=== PATIENT | female | born 1945 | race American Indian/Alaskan Native ===

== ENCOUNTER 2016-12-21 12:33 | Outpatient (CLI) | payer MEDICARE ==
--- NOTE | 2016-12-21 14:26 | Mammography Report ---
Bilateral digital screening mammogram with CAD. Comparison studies from 2016 and 2014 are reviewed. Findings: The parenchyma is heterogeneously dense. A new area of parenchymal asymmetry is seen in the upper-outer quadrant of the left breast. No architectural distortion or suspicious calcifications are seen. A stable nodular asymmetry in the upper right breast is unchanged compared to studies in both 2016 and 2014. Impression: New left frontal asymmetry. BI-RADS 2:. Recommendation: Spot compression images, 90 degree view, and ultrasound if needed.
== END 2016-12-21 12:34 | disposition home or self-care (01) ==
LOC: MAMMO 12:33
PROVIDERS: ATTEND Internal Medicine
DX: Z12.31 Encounter for screening mammogram for malignant neoplasm of breast (principal); I10 Essential (primary) hypertension; E03.9 Hypothyroidism, unspecified; F32.9 Major depressive disorder, single episode, unspecified
CPT/HCPCS: 77067; G0202

== ENCOUNTER 2017-02-08 12:21 | Outpatient (CLI) | payer MEDICARE ==
--- NOTE | 2017-02-08 14:55 | Mammography Report ---
Diagnostic left mammogram and targeted left breast ultrasound. History: Recall for left asymmetry. Findings: Spot compression images of the parenchymal density demonstrate almost complete effacement of the previously noted asymmetry. Sonographic evaluation of the upper-outer quadrant of the left breast demonstrate no evidence of a cystic solid mass. Impression: No suspicious findings. BI-RADS code: 1. Recommendation: Annual screening.
== END 2017-02-08 12:22 | disposition home or self-care (01) ==
LOC: MAMMO 12:21
PROVIDERS: ATTEND Internal Medicine
DX: R92.8 Other abnormal and inconclusive findings on diagnostic imaging of breast (principal)
CPT/HCPCS: 76642; G0206

== ENCOUNTER 2017-12-27 13:34 | Outpatient (CLI) | payer MEDICARE ==
--- NOTE | 2017-12-28 08:45 | Mammography Report ---
Bilateral mammogram: Compared to 12/21/16. CAD study utilized. Findings: Scattered glandular parenchyma bilaterally. Benign calcifications bilaterally. New low-density circumscribed asymmetry lower mid right breast seen on MLO view. Normal axilla. Impression: New circumscribed low density asymmetry in right breast. Recommend spot compression and if necessary sonographic examination. BI-RADS CATEGORY: 0 = Needs additional imaging evaluation ACR BI-RADS MAMMOGRAPHIC CODES: 0 = Needs additional imaging evaluation; 1 = Negative; 2 = Benign; 3 = Probably benign; 4 = Suspicious; 5 = Malignant; 6 = Known biopsy-proven malignancy COMMENT: 1. Dense breast tissue, i.e., adenosis, fibrocystic changes, etc., may obscure an underlying neoplasm. 2. Approximately 10% of cancers are not detected with mammography. 3. A negative mammography report should not delay biopsy if a clinically suspicious mass is present. COMMENT: Patient follow-up letters are generated in [facility].
--- NOTE | 2017-12-28 08:50 | Mammography Report ---
BONE DENSITY STUDY: Postmenopausal osteoporosis screening. DEFINITIONS: BMD = Bone Mineral Density T-score = BMD related to mean peak bone mass of young adult (mean expressed in Standard Deviation) Z-score = Age matched BMD expressed in SD World Health Organization (WHO) Diagnostic Criteria Normal T-score > -1 SD Osteopenia T-score between -1 and -2.4 SD Osteoporosis T-score -2.5 SD or below FINDINGS: The weighted average BMD of lumbar spine L1-L4 is 0.810 with a T-score of -2.2. The weighted average BMD of the left hip is 0.695 with a T-score of -2.0. Compared to prior examination December 2015 there has been minimal demineralization change in the spine with no change in the hip. IMPRESSION: The patient's average T-score is diagnostic for osteopenia and average relative risk for fracture. NOTE: BMD is not the only risk factor for fracture; also consider factors such as the patient's age, risk of falling, previous osteoporotic fracture, family history of osteoporotic fractures, current smoker, and low body weight. Butt's triangle is a region of interest in femur, predominantly of trabecular bone. It is not a true anatomic site, and ISCD does not recommend its use clinically.
== END 2017-12-27 13:35 | disposition home or self-care (01) ==
LOC: MAMMO 13:34
PROVIDERS: ATTEND Internal Medicine
DX: Z12.31 Encounter for screening mammogram for malignant neoplasm of breast (principal); Z13.820 Encounter for screening for osteoporosis; M81.0 Age-related osteoporosis without current pathological fracture; M85.88 Other specified disorders of bone density and structure, other site; I10 Essential (primary) hypertension; E03.9 Hypothyroidism, unspecified; M19.90 Unspecified osteoarthritis, unspecified site; F17.210 Nicotine dependence, cigarettes, uncomplicated; Z78.0 Asymptomatic menopausal state; Z90.710 Acquired absence of both cervix and uterus; Z90.89 Acquired absence of other organs
CPT/HCPCS: 77067; 77080

== ENCOUNTER 2019-01-06 11:18 | Outpatient (CLI) | payer MEDICARE ==
--- NOTE | 2019-01-07 11:39 | Mammography Report ---
DIGITAL SCREENING MAMMOGRAM WITH CAD, 01/06/2019 INDICATION: Routine screening mammography. TECHNIQUE: Digital bilateral 2D mammography was obtained in the craniocaudal and mediolateral obliq ue projections. This examination was interpreted with the benefit of Computer-Aided Detection analysi s. COMPARISON: 12/27/2017 FINDINGS: Breast Density: The breasts are heterogeneously dense, which may obscure small masses. There is no evidence of dominant mass, suspicious calcifications or architectural distortion in eithe r breast. Scattered bilateral benign calcifications. IMPRESSION: Follow up recommendation: Routine yearly BI-RADS Category 2: Benign. A "normal" or negative report should not discourage follow up or biopsy of a clinically significant f inding. A written summary of these findings will be mailed to the patient. The patient will be entered into a mammography reporting system which will generate a reminder letter for the patient's next appointmen t at the appropriate interval. The [employer] recommends yearly mammograms starting at age 40 and continuing as l milo as a woman is in good health. Breast MRI is recommended for women with an approximate 20-25% or greater lifetime risk of breast cancer, including women with a strong family history of breast or ova jessica cancer or who have been treated for Hodgkin's disease. Signer Name: John Garcia MD Signed: 01/07/2019 11:35 AM Workstation Name: [id number]
== END 2019-01-06 11:19 | disposition home or self-care (01) ==
LOC: MAMMO 11:18
PROVIDERS: ATTEND Internal Medicine
DX: Z12.31 Encounter for screening mammogram for malignant neoplasm of breast (principal)
CPT/HCPCS: 77067

== ENCOUNTER 2021-08-01 13:41 | Outpatient (CLI) | payer MEDICARE ==
--- NOTE | 2021-08-02 08:59 | Mammography Report ---
DEXA BONE DENSITY SCAN INDICATION / CLINICAL INFORMATION: OSTEOPOROSIS. 76 years Female COMPARISON: None available. LUMBAR SPINE, L1-L4: - Bone mineral density (BMD) = 0.772 g/cm2. - T-score = -2.5 - Z-score = -0.7 Change (%) since most recent prior (if available): 4.7% decrease LEFT HIP, TOTAL : - Bone mineral density (BMD) = 0.7 g/cm2. - T-score = -2 - Z-score = -0.8 Change (%) since most recent prior (if available): 0.7% increase IMPRESSION: 1. WHO Classification: Osteoporosis. Fracture Risk: High. Note: 10-Year Fracture Risk (FRAX) not reported. This DEXA unit lacks FRAX functionality. BMD Reporting Guidelines (ISCD, 2015) BMD Reporting in Postmenopausal Women and in Men Age 50 and Older - T-scores are preferred. - The WHO densitometric classification is applicable. BMD Reporting in Females Prior to Menopause and in Males Younger Than Age 50 - Z-scores, not T-scores, are preferred. This is particularly important in children. - A Z-score of -2.0 or lower is defined as below the expected range for age, and a Z-score above -2.0 is within the expected range for age. - Osteoporosis cannot be diagnosed in men under age 50 on the basis of BMD alone. - The WHO diagnostic criteria may be applied to women in the menopausal transition. http://www.iscd.org/official-positions/1898-ysdo-cyugvhnf-positions-adult/ Signer Name: Yousuf Black MD Signed: 08/02/2021 8:54 AM Workstation Name: [id number]
--- NOTE | 2021-08-03 09:07 | Mammography Report ---
DIGITAL SCREENING MAMMOGRAM WITH CAD, 08/01/2021 CLINICAL INFORMATION / INDICATION: Routine screening mammography. TECHNIQUE: Digital bilateral 2D mammography was obtained in the craniocaudal and mediolateral obliqu e projections. This examination was interpreted with the benefit of Computer-Aided Detection analysis . COMPARISON: 01/06/2019, 12/27/2017 FINDINGS: Breast Density: The breasts are heterogeneously dense, which may obscure small masses. No dominant mass, suspicious calcifications, or architectural distortion in either breast. Mild bilat eral nodularity is stable. No interval change. IMPRESSION: No mammographic evidence of malignancy. Follow up recommendation: Routine yearly BI-RADS Category 2: BENIGN. A "normal" or negative report should not discourage follow up or biopsy of a clinically significant f inding. A written summary of these findings will be mailed to the patient. The patient will be entered into a mammography reporting system which will generate a reminder letter for the patient's next appointmen t at the appropriate interval. The [employer] recommends yearly mammograms starting at age 40 and continuing as l milo as a woman is in good health. Breast MRI is recommended for women with an approximate 20-25% or greater lifetime risk of breast cancer, including women with a strong family history of breast or ova jessica cancer or who have been treated for Hodgkin's disease. Signer Name: Kate Votg MD Signed: 08/03/2021 9:02 AM Workstation Name: [id number]
== END 2021-08-01 13:42 | disposition home or self-care (01) ==
LOC: MAMMO 13:41
PROVIDERS: ATTEND Internal Medicine
DX: Z12.31 Encounter for screening mammogram for malignant neoplasm of breast (principal); Z13.820 Encounter for screening for osteoporosis; M81.0 Age-related osteoporosis without current pathological fracture
CPT/HCPCS: 77067; 77080